=== PATIENT | female | born 1955 | race Caucasian/White ===

== ENCOUNTER → 2016-08-19 | Outpatient (CLI) | payer OTHER | LOC: FIMAGING 12:44 | PROVIDERS: ATTEND Internal Medicine | DX: Z12.31 Encounter for screening mammogram for malignant neoplasm of breast (principal) | CPT/HCPCS: G0202 ==

== ENCOUNTER → 2017-01-21 | Outpatient (CLI) | payer OTHER | LOC: FIMAGING 10:46 | PROVIDERS: ATTEND Internal Medicine | DX: M43.16 Spondylolisthesis, lumbar region (principal); M51.36 Other intervertebral disc degeneration, lumbar region; R19.09 Other intra-abdominal and pelvic swelling, mass and lump ==

== ENCOUNTER → 2017-01-27 | Outpatient (CLI) | payer OTHER | LOC: CIMAGING 08:57 | PROVIDERS: ATTEND Internal Medicine | DX: N83.291 Other ovarian cyst, right side (principal); N83.292 Other ovarian cyst, left side; R93.8 Abnormal findings on diagnostic imaging of other specified body structures | CPT/HCPCS: 76856-PO ==

== ENCOUNTER → 2017-01-30 | Outpatient (CLI) | payer OTHER | LOC: BRMIMAGING 09:11 | PROVIDERS: ATTEND Internal Medicine | DX: Z13.820 Encounter for screening for osteoporosis (principal); M85.80 Other specified disorders of bone density and structure, unspecified site ==

== ENCOUNTER → 2017-03-17 | Outpatient (CLI) | payer OTHER ==
[~2017-03-17] MED LIST: IOPAMIDOL (ISOVUE 370) 100 ML BTL IV ONE; NITROGLYCERIN 0.4 MG BTL SL ONE
== END ==
LOC: FIMAGING 07:33
PROVIDERS: ATTEND Internal Medicine Cardiovascular Disease
DX: K59.00 Constipation, unspecified (principal); S33.140A Subluxation of L4/L5 lumbar vertebra, initial encounter; M48.061 Spinal stenosis, lumbar region without neurogenic claudication; I34.1 Nonrheumatic mitral (valve) prolapse; I34.0 Nonrheumatic mitral (valve) insufficiency
CPT/HCPCS: Q9967

== ENCOUNTER → 2017-12-20 | Outpatient (CLI) | payer OTHER | LOC: FIMAGING 11:32 | PROVIDERS: ATTEND Internal Medicine | DX: Z12.31 Encounter for screening mammogram for malignant neoplasm of breast (principal) ==

== ENCOUNTER 2018-01-18 10:08 | Inpatient (IN) | payer OTHER ==
[2018-01-18] MEDS ORDERED: LIDOCAINE 1% 2 ML INJ ID PRN (12:32)
[2018-01-18] MEDS ORDERED: LR 1,000 ML IV ONE (12:32)
[2018-01-18] MEDS ORDERED: BUPIVACAINE/EPI 0.5% 30 ML SDV ONE ×2 (14:40→16:16)
[2018-01-18] MEDS ORDERED: SURGIFLO MATRIX KIT WITH THROMBIN 8 ML TP ONE (14:40)
[2018-01-18] MEDS ORDERED: BACITRACIN 50,000 UNITS/10 ML SYR IRR ONE (14:41)
[2018-01-18] MEDS ORDERED: TRANEXAMIC ACID 1,000 MG in NS 100 ML IV ONE (14:54)
[2018-01-18] MEDS ORDERED: ceFAZolin 2 GM/DEXTROSE 100 ML IV ONE (14:54)
--- NOTE | 2018-01-18 15:20 | PDANEPAE ---
ANE Past Medical History - Cardiovascular History Hx Hypertension: No Hx Arrhythmias: Yes Hx Chest Pain: No Hx Coronary Artery / Peripheral Vascular Disease: No Hx CHF / Valvular Disease: Yes Hx Palpitations: No Cardiovascular History Comment: ring in MV. 03/2017 MVR @ [facility]. frequent PVC's and PAC's as seen on holter report. Followed by Afshan Maciel at [facility]- will obtain records - Pulmonary History Hx COPD: No Hx Asthma/Reactive Airway Disease: No Hx Recent Upper Respiratory Infection: No Hx Oxygen in Use at Home: No Hx Sleep Apnea: No Sleep Apnea Screening Result - Last Documented: Negative - Neurologic History Hx Cerebrovascular Accident: No Hx Seizures: No Hx Dementia: No Neurologic History Comment: with walking she has burning to feet - Endocrine History Hx Diabetes: No Hypothyroid: No Hyperthyroid: No Obesity: no - Renal History Hx Renal Disorders: No - Liver History Hx Hepatic Disorders: No - Neurological & Psychiatric Hx Hx Neurological and Psychiatric Disorders: No - Cancer History Hx Cancer: No - Congenital Disorder History Hx Congenital Disorders: No - GI History GERD: no Hx Gastrointestinal Disorders: No - Other Health History Other Health History: wears glasses - Chronic Pain History Chronic Pain: Yes (sacral pain) - Surgical History Prior Surgeries: 03/2017 MVR at [facility]. 01/2017 total hysterectomy. tonsillectomy at 5 yo ANE Review of Systems Review of Systems: - Exercise capacity Exercise capacity: >=4 METS, limited by disability METS (RN): 4 METS ANE Patient History - Allergies Allergies/Adverse Reactions: lisinopril Allergy (Verified 12/26/17 14:32) - Home Medications Home Medications: Aspirin [Aspirin 81mg (*)] 81 mg PO DAILY 03/07/17 [Last Taken 01/11/18] Calcium Carbonate [Oyster Shell Calcium 500 mg (*)] 500 mg PO DAILY 03/07/17 [ Last Taken Unknown] Cholecalciferol Vit D3 [Vitamin D3 (*)] 2,000 units PO DAILY 03/07/17 [Last Taken 01/11/18] Magnesium Oxide [Magnesium] 500 mg PO DAILY 12/22/17 [Last Taken 01/11/18] Riboflavin [Vitamin B-2] 500 mg PO DAILY 12/22/17 [Last Taken 01/11/18] Rosuvastatin Calcium 5 mg PO DAILY 12/22/17 [Last Taken 01/15/18] - NPO status NPO Since - Liquids (Date): 01/18/18 NPO Since - Liquids (Time): 05:15 NPO Since - Solids (Date): 01/18/18 NPO Since - Solids (Time): 05:00 - Anes Hx Anes Hx: post operative nausea and vomiting - Smoking Hx Smoking Status: Never smoked Marijuana use: No - Alcohol Use Alcohol Use: Rarely - Family Anes Hx Family Anes Hx: neg - N/A Family Hx Anesthesia Complications: mother and brother tended to get very nauseous with codeine drugs ANE Labs/Vital Signs - Vital Signs Blood Pressure: 133/92 Heart Rate: 81 Respiratory Rate: 12 O2 Sat (%): 97 Height: 157.48 cm Weight: 49.895 kg ANE Physical Exam - Airway Neck exam: FROM Mallampati Score: Class 2 Mouth exam: normal dental/mouth exam - Pulmonary Pulmonary: no respiratory distress, no rales or rhonchi, clear to auscultation - Cardiovascular Cardiovascular: regular rate and rhythym, no murmur, rub, or gallop - ASA Status ASA Status: II ANE Anesthesia Plan Anesthesia Plan: general endotracheal anesthesia Total IV Anesthesia: No
--- NOTE | 2018-01-18 15:23 | PDHPUP ---
History & Physical Update H&P update statement: This history and physical update is based on an assessment of the patient which was completed after admission or registration (within 24 hours), but prior to the surgery/procedure. H&P update: H&P reviewed & patient examined, no change in patient's condition since H&P completed
[2018-01-18] MEDS ORDERED: PROPOFOL 200 MG/20 ML VIAL ONE (15:40)
[2018-01-18] MEDS ORDERED: fentaNYL 100 MCG/2 ML INJ ONE ×2 (15:40→18:21)
[2018-01-18] MEDS ORDERED: ROCURONIUM 50 MG/5 ML VIAL ONE (15:41)
[2018-01-18] MEDS ORDERED: ONDANSETRON 4 MG/2 ML VIAL ONE (15:41)
[2018-01-18] MEDS ORDERED: PHENYLEPHRINE HCL 100 MCG/ML SYR ONE (15:44)
[2018-01-18] MEDS ORDERED: LIDOCAINE 2% 2 ML INJ ONE ×2 (15:44)
[2018-01-18] MEDS ORDERED: DEXAMETHASONE 4 MG/ML VIAL ONE (15:47)
[2018-01-18] MEDS ORDERED: NALOXONE HCL 0.4 MG/ML INJ IVP PRN (16:26)
[2018-01-18] MEDS ORDERED: SUGAMMADEX SODIUM 200 MG/2 ML VIAL IVP ONE (16:26)
[2018-01-18] MEDS ORDERED: oxyCODONE IR 5 MG TAB PO PRN (16:26)
[2018-01-18] MEDS ORDERED: HYDROCODONE/APAP 5/325 TAB PO PRN (16:26)
[2018-01-18] MEDS ORDERED: ONDANSETRON 4 MG/2 ML VIAL IVP PRN ×2 (16:26→18:19)
[2018-01-18] MEDS ORDERED: PHENYLEPHRINE HCL 100 MCG/ML SYR IVP PRN (16:26)
[2018-01-18] MEDS ORDERED: HYDROmorphONE/DILAUDID 2 MG/ML INJ IVP PRN (16:26)
[2018-01-18] MEDS ORDERED: ACETAMINOPHEN 500 MG TAB PO PRN (16:26)
[2018-01-18] MEDS ORDERED: LR 500 ML IV PRN (16:26)
[2018-01-18] MEDS ORDERED: PROMETHAZINE HCL 25 MG/ML INJ IVP PRN (16:26)
[2018-01-18] MEDS ORDERED: fentaNYL 100 MCG/2 ML INJ IVP PRN (16:26)
[2018-01-18] MEDS ORDERED: ePHEDrine SULFATE 25 MG/5 ML SYR ONE (16:48)
[2018-01-18] MEDS ORDERED: VANCOMYCIN 1 GM VIAL ONE (17:40)
[2018-01-18] MEDS ORDERED: LACTULOSE 20 GM/30 ML UDCUP PO PRN (18:19)
[2018-01-18] MEDS ORDERED: ONDANSETRON DISINTEGRATING 4 MG TAB PO PRN (18:19)
[2018-01-18] MEDS ORDERED: MAGNESIUM HYDROXIDE 30 ML UDCUP PO PRN (18:19)
[2018-01-18] MEDS ORDERED: diphenhydrAMINE 25 MG CAP PO PRN (18:19)
[2018-01-18] MEDS ORDERED: BISACODYL 10 MG SUPP PR PRN (18:19)
[2018-01-18] MEDS ORDERED: HYDROmorphONE/DILAUDID 1 MG/ML INJ IVP PRN (18:19)
[2018-01-18] MEDS ORDERED: POLYETHYLENE GLYCOL 3350 17 GM PKT PO PRN (18:19)
--- NOTE | 2018-01-18 18:25 | POSTOPPROG ---
Post Op Note Date of Operation: 01/18/18 Surgeon: Carroll Sanchez Elevator Erector Helper: Noemi Hernandez PA-C Anesthesiologist: Dr. Juan Morris Anesthesia: GET(General Endotracheal) Pre-op Diagnosis: low back pain Post-op Diagnosis: low back pain, lumbar stenosis, lumbar degenerative disc Indication: low back pain Procedure: L4-5 MIS TLIF Inf/Abcess present in the surg proc area at time of surgery?: No EBL: 50-100 Complications: none
--- NOTE | 2018-01-18 18:29 | SOAPPROG ---
SOAP Progress Note Assessment/Plan: Assessment/Plan: 62y/o female s/p L4-5 TLIF - orders as written - TEDs/SCDs - PT/OT - LSO when out of bed - anticipate discharge tomorrow pending clinical course - call with any issues or concerns 01/18/18 18:25 Subjective: Minimal low back pain Objective: Vital Signs Temp Pulse Resp BP Pulse Ox 36.8 C 81 12 133/92 H 97 01/18/18 12:51 01/18/18 16:26 01/18/18 16:26 01/18/18 16:26 01/18/18 16:26 NAD, waking from anesthesia EOMi, face symmetric LE 5/5=B in quads, hamstring, dorsiflexion, plantarflexion EHL sensation grossly intact throughout incision clean, dressed ICD10 Worksheet Patient Problems: Problems Problem Status Onset Low back pain Acute - ICD10 Problem Qualifiers (1) Low back pain
--- NOTE | 2018-01-18 18:34 | POSTANESTH ---
Post Anesthetic Evaluation Cardiovascular Status: Normal, Stable Respiratory Status: Normal, Stable Level of Consciousness/Mental Status: Can Participate in Eval Pain Control: Adequate, Prn Tx Ordered Nausea/Vomiting Control: Adequate, Prn Tx Ordered Complications Possibly Related to Anesthesia: None Noted
[2018-01-18] MEDS ORDERED: DIAZEPAM 5 MG/ML 1 ML SYR ONE (18:47)
[2018-01-18] MEDS: DIAZEPAM 5 MG/ML 1 ML SYR IVP PRN ×2 (18:50→19:05)
[2018-01-18] MEDS ORDERED: oxyCODONE IR 5 MG TAB ONE (20:11)
[2018-01-18] MEDS: ACETAMINOPHEN 500 MG TAB PO SCH (22:48)
[2018-01-18] MEDS: SENNOSIDES/DOCUSATE SODIUM TAB PO SCH (22:49)
[2018-01-19] MEDS: oxyCODONE IR 5 MG TAB PO PRN ×5 (00:07→15:38)
[2018-01-19] MEDS: ceFAZolin 2 GM/DEXTROSE 100 ML IV SCH ×2 (00:07→08:51)
[2018-01-19] MEDS: ACETAMINOPHEN 500 MG TAB PO SCH ×3 (05:52→23:44)
--- NOTE | 2018-01-19 07:17 | PDMN ---
Medical Necessity Medical necessity: Pt meets inpt criteria per MD order and [facility] S-820, Lumbar Fusion, Medicare inpt only list. Pt w/ lumbar stenosis and lumbar degen disc disease underwent L4-5 MIS TLIF.
[2018-01-19] MEDS: SENNOSIDES/DOCUSATE SODIUM TAB PO SCH ×2 (08:55→23:44)
[2018-01-19] MEDS: ROSUVASTATIN CALCIUM 10 MG TAB PO SCH (08:55)
[2018-01-19] MEDS: CYCLOBENZAPRINE 10 MG TAB PO PRN ×2 (10:36→18:38)
--- NOTE | 2018-01-19 13:04 | GPROG ---
I saw and evaluated this patient during this morning's rounds. Overall, she is doing remarkably well . She is actually sitting at the bedside. She reports that she has relief of the lumbar pseudo-rody dicatory type pain that she was having before the operation. She reports no lower extremity symptoms at all. I have discussed the plan of care with the patient's nurse. Her dressing is clean, dry, an d intact. At this point, I will progress with patient with some physical therapy, but I think she is more than safe to go home today as long as they are in agreement. We will get some x-rays to make s ure all the instrumentation is looking fine. /[id number]/MODL
--- NOTE | 2018-01-19 13:24 | GDS ---
The patient underwent an uncomplicated left-sided L4-5 MIS TLIF on 01/18 without complication. She d id quite well following operation. She noticed immediate pain relief in her lower back following dimas melida. She progressed well with physical therapy and was subsequently cleared for discharge home on o ral pain medicine. Her vitals were stable, and her pain was well controlled on an oral regimen throu ghout the hospital stay. The patient is to see me in my office 2 weeks following the operation for an incision check. She has been prescribed oral medications. She knows she can resume all medications, except for blood thinne rs and NSAIDs 1 week after the operation. The patient has a 32-page packet describing all postoperat jena instructions and should refer to that. If she has any remaining questions, she is more than welc ome to contact my cell phone, which she has the number for. /[id number]/MODL
--- NOTE | 2018-01-19 13:48 | ASMTCMCOM ---
CM Note CM Note Notes: Pt is a 62 y/o female admitted for spinal stenosis of lumbar region. Pt had the surgery w/ Dr. Sanchez. CM met w/ pt for dispo planning. Pt is interested in having HC, PT services. OT has cleared pt to d/c home without any needs. Referral sent to [facility]. [facility] is able to accept pt and start on Monday. Pt was ok w/ this. CM confirmed pts address and phone number. CM called Dr. Sanchez to put in Transfer of Care. CM provided June, RN w/ phone number to give report. Pts son will be bringing pt home. CM available for changes. [facility] Date Signed: 01/19/2018 01:47 PM Electronically Signed By:UZMA Anderson
--- NOTE | 2018-01-19 13:49 | ASDISCHSUM ---
Discharge Information Plan Status:Home with Home Health Medically Cleared to Leave:01/19/2018 Discharge Date:01/19/2018 CM D/C Disposition: ADT D/C Disposition: Projected Discharge Date:01/19/2018 11:00 AM Transportation at D/C: Discharge Delay Reason: Follow-Up Date:01/19/2018 11:00 AM Discharge Slot: Final Diagnosis: Placement Information Referral Type:*Home Health Care Services Referral ID:[id number] Provider Name:[facility] Address 1:[address] Address 2: City:[place]: State:[place] Patient Contact Information Contact Name:ELIANA Relationship:Other Address: City: [facility] Phone: [facility]/Zip Code: Email: Financial Information Financial Class:[employer] Primary Plan Desc:PATRICIA GARRETT Primary Plan Number:[id number] Secondary Plan Desc: Secondary Plan Number: Assessment Information LACE LACE Length of stay for Answers: 1 day current admission Acuity / Level of Answers: Yes Care: Did the patient have an inpatient admission? Comorbidities - select Answers: Congestive heart failure all that apply Opioid dependence / Chronic pain # of Emergency department Answers: 0 visits in the last 6 months Score: 10 Date Signed: 01/19/2018 01:48 PM Electronically Signed By:UZMA Anderson [facility] Progress Note CM Eliceo CM Note Notes: Pt is a 62 y/o female admitted for spinal stenosis of lumbar region. Pt had the surgery w/ Dr. Sanchez. CM met w/ pt for dispo planning. Pt is interested in having HC, PT services. OT has cleared pt to d/c home without any needs. Referral sent to [facility]. [facility] is able to accept pt and start on Monday. Pt was ok w/ this. CM confirmed pts address and phone number. CM called Dr. Sanchez to put in Transfer of Care. CM provided June, RN w/ phone number to give report. Pts son will be bringing pt home. CM available for changes. Plan: [facility]; RN Date Signed: 01/19/2018 01:47 PM Electronically Signed By:UZMA Anderson Intervention Information
--- NOTE | 2018-01-19 14:12 | ASMTCMCOM ---
CM Note CM Note Notes: CM spoke to Dr. Sanchez and he does not want pt to have HC at this time. Pt will follow up w/ him in 2 weeks. CM communicated this w/ pt, [facility] and [facility]. No needs at this time. Pt will d/c independent. Date Signed: 01/19/2018 02:11 PM Electronically Signed By:UZMA Anderson
[2018-01-20] MEDS: oxyCODONE IR 5 MG TAB PO PRN ×2 (03:06→12:29)
[2018-01-20] MEDS: ACETAMINOPHEN 500 MG TAB PO SCH (07:17)
[2018-01-20] MEDS: SENNOSIDES/DOCUSATE SODIUM TAB PO SCH (07:18)
[2018-01-20] MEDS: ROSUVASTATIN CALCIUM 10 MG TAB PO SCH (09:49)
--- NOTE | 2018-01-20 10:56 | SUROPNOTE ---
[facility] Operative Report - Surgery Patient: Sherri Duarte Date: 01/18/18 Pre-operative Diagnoses: L4/5 Degenerative disc disease and spondylosis L4/5 Degenerative spondylolisthesis Bilateral L4 pars insufficiency fractures Lumbar spinal stenosis Post-operative Diagnosis: Same Procedures: L4/5 Minimally Invasive Posterior Lumbar Decompression and Fusion with Instrumentation Left L4/5 Transforaminal Lumbar Interbody Fusion (TLIF) Structural use of morselized local autograft bone Structural use of allograft Use of intra-operative fluoroscopy Use of intra-operative neuromonitoring, including EMG and SSEP modalities Use of a surgical microscope Surgeon: Carroll Sanchez MD Assist: Noemi Hernandez PA-C Anesthesia: General endotracheal anesthesia Findings: As expected spondylolisthesis, spinal stenosis, facet hypertrophy Estimated Blood Loss: 100mL Drains: Hemovac sewn to skin Specimens: None Complications: None Condition: Transferred to PACU in stable condition Implants: NuVasive Screws: 40mm x 6.5mm (L4), 45mm x 6.5mm (L5 Rods: 35mm x2 TLIF cage: 7mm, TLX NuVasive cage, opened to full lordosis Allograft: 3mL allograft used structurally in the disc space and interbody cage Autograft: local bone from decompression used structurally in the disc space and interbody cage Indications: This patient was seen in my office and diagnosed with degenerative spondylolisthesis and spinal stenosis. I have explained all options of treatment for the patient, and the patient has elected to proceed with operative management. I have explained all risks, benefits, and alternatives of the proposed procedure. The risks that we have discussed include , blindness, nerve damage, infection, dural tear, failure of surgery to alleviate pre-operative symptoms, nonunion, and possible need for further operation. I explained separately the risks of allograft, including infection and disease transfer. In addition to the aforementioned procedure, I discussed with the patient that other procedures may be indicated during the course of surgery that would be considered in the patients best interest. The patient expressed understanding of this and agreed to move forward with operative management. Pre-operative: The proposed incision site was marked in the pre-operative holding area by me. The patient was then taken to the operating room in stable condition. Following smooth induction of general anesthesia, the patient was positioned prone on a Servando table in mild reverse Trendelenburg with all down surfaces well-padded. The patient was then prepped and draped in the usual sterile fashion. Pre- operative antibiotics were administered within one hour of the incision. A surgical timeout was performed, and all parties involved in the procedure were in agreement on the correct patient, location, and procedure to be performed. Level localization and spinal pause: The proposed L4/5 levels were identified using C-arm fluoroscopy and the skin was marked for the proposed incision. The pedicles were marked out. Two separate incisions, 4cm lateral to midline were made, approximately 4cm in length. Electrocautery was used to dissect the subdermal fat layer down to fascia and to coagulate bleeding vessels. The fascia was then incised longitudinally in line with the incision. Blunt finger dissection was then performed; the facets were palpated and muscle was swept away al allow for instrumentation to be passed easily down to bone. At this time, a secondary spinal pause was then performed, and the level was confirmed with all parties participating in the operation. Pedicle screw placement: All pedicle screws were placed in a percutaneous fashion. Using biplanar fluoroscopy, a Jamshidi needle was gently malleted into place at the appropriate pedicle screw starting position at the lateral border of the facet on the AP view and mid-point of the pedicle on lateral view. The needle was advanced just past the pedicle into the vertebral body. At this point, a neurostimulating probe was attached to the end of the needle and all potentials were noted to be above 10 milliamps. The central trocar was then removed, and a blunt K-wire was passed into the cannulated pedicle. The Jamshidi was then removed completely, with the K-wire anchored in the vertebral body. A tap was then used up to a size that was 1mm below the final screw size based on pre- operative templating. An appropriately-sized screw was placed at each level and confirmed fluoroscopically. On the same side as the TLIF cage, two headless shanks were placed, which would allow for facile visualization of bony landmarks and safe decompression. On the contralateral side, complete pedicle screws with associated reduction towers were placed at this time. All screws were then stimulated. Each screw was stimulated and potentials were all above 20 milliAmps. Approach and transpedicular decompression (cephalad level nerve root to be fused ): Based on pre-operative neurological symptoms, a decision was made with the patient to place a TLIF cage on the more symptomatic side. A pointed dilator was introduced onto the lateral pars of the caudal level to be fused. Serial dilators were used and the XLIF retractor system was then docked. Positioning was confirmed parallel to the disc space to be fused by lateral fluoroscopy. Using a transpedicular decompression technique and taking care to avoid breach into the previously created pedicle tract, the inferior facet of the cephalad level to be fused, and the superior facet of the caudal level to be fused were removed using a high speed leny and Kerrison rongeurs. Special care was taken to not use the high speed leny in proximity to the underlying nerve root. Using a [place] #4, the nerve was protected cephalad and Kambins triangle was identified (bordered by the nerve root cephalad and the thecal sac medially). TLIF: The disc space to be fused was identified by appearance and consistency. With a disc knife angled away from neural structures, the annulus was transected and removed using a disc punch. A disc space dilator was used to free any remaining annulus, which was removed using a disc punch and/or scalpel. All remaining nucleus pulposus and cartilage from both cephalad and caudal end plates were removed using a series of straight and angled disc preparation curettes. A blunt -tipped long 10mL syringe was then passed into the disc space and flushed to remove any additional disc fragments; this was done multiple times until no further loose fragments were produced. Trial TLIF spacers were then passed into the disc space to both dilate the space and adequately size the final implant. Local autograft bone was then combined with allograft bone; 5mL of bone was inserted into the disc space using a specialized bone insertion device, and the remaining bone was placed into the interbody cage. After this, an appropriately sized cage was selected, packed with local autograft bone, and attached to an inserted handle. The TLIF cage was then malleted into place and positioning was confirmed by visual inspection and biplanar radiographs. Any bleeding epidural vessels were coagulated using bipolar cautery. Fran and set screw placement, reduction of spondylolisthesis and bilateral pars insufficiency fractures: At this time, associated tulip heads were placed into the screws with associated reduction towers on the TLIF side. Using a percutaneous fran passer, an appropriately-sized fran was then placed into the pedicle screw heads with ample fran extending from either end. To ensure that the rods were appropriately positioned, three checks were performed: the rods were visually inspected, the insertion handle was torqued and both towers were visualized to move, and a lateral radiograph was taken to ensure an appropriate length to the rods. The set screws were then tightened in the caudal screws first. Using the reduction towers in the cephalad screws, the pedicle screws were then engaged and pulled posteriorly into the rods. This was done simultaneously on both sides to minimize stress at either level. At this point, a lateral radiograph was taken and reduction of the vertebral insufficiency fractures was noted. Of note, there were no changes in the SSEP, MEP and EMG monitoring during this maneuver. Set screws were then placed into the cephalad pedicle screws over the rods, and all set screws were tensioned using a torque-limited screwdriver. Bone graft: All bony surfaces were decorticated using a high speed leny, including all facets to be fused. All local autograft bone was cleaned of soft tissue and morselized. All remaining allograft and autograft bone was placed in the facets being fused. Closure: The surgical field was then copiously irrigated with sterile saline. Vancomycin powder was then applied to the surgical field. A small drain was placed deep to the fascia and brought out of the skin superior and laterally. The drain was then sewn to skin. #1 vicryl suture were used to repair the fascia in an interrupted fashion. Then 2-0 interrupted sutures were used to repair the dermal layer, and a separate 3-0 monofilament suture was used to repair the subcutaneous layer in a running fashion. All sutures used were absorbable. Topical adhesive was then applied to the skin and allowed to dry. A sterile island dressing was applied over the surgical incision. A surgical count was performed before initiation of closure and following the procedure, and all were correct. I was present for the entire procedure. Surgical microscope use: A surgical microscope was utilized throughout the decompressive portion of this case. This was deemed necessary for safe and accurate surgical decompression of affected nerve roots. Neuromonitoring: SSEP, MEP and EMG were used throughout the case from incision until the beginning of closure. There were no significant changes throughout the case, and SSEP signals were at their pre-surgical baseline levels before surgical closure was initiated. recruitment and outreach assistant: A retail event and sales assistant was used throughout the case, and deemed necessary for safe neural retraction, hemostasis, and suction. Recovery: The patient was extubated uneventfully in the operating room. The patient was taken to the recovery room in stable condition. Sequential compression devices for VTE prophylaxis were applied to the patients lower extremities, and were ordered to be used while the patient was non-ambulatory. Chemical VTE prophylaxis was considered to be contraindicated for this patient because of the risk of bleeding near the epidural space. Carroll Sanchez MD
--- NOTE | 2018-01-20 11:22 | ASMTDCNOTE ---
Case Management Discharge Discharge Order Complete? Answers: Yes Patient to Obtain Answers: Independently Medications Transportation Arranged Answers: Family/Friends Transport will Pick (Date 01/20/2018 12:00 AM & Time) EMTALA Complete Answers: No Notes: N/A Case Management Transport Answers: No Notes: N/A Form Complete Faxed Final Orders Answers: No Notes: N/A Agency/Facility Transfer Answers: No Notes: N/A Report Printed & Faxed to Receiving Agency Family Notified Answers: Yes Notes: Pt to notify Discharge Comments Notes: Reviewed chart regarding discharge plan of care, pt's progress. Pt is s/p an uncomplicated left-sided L4-5 TLIF. Per MD notes, pt to discharge home independently with no identified needs. Pt previously set up with [facility] (PT services). Per prior CM notes, Dr. Sanchez does not feel pt requires C at this time. Pt to follow up as directed. No IM/ALVARES forms signed, not applicable. CM available for any further issues or concerns. Discharge Plan: Home independently Date Signed: 01/20/2018 11:21 AM Electronically Signed By:Claudia Brown RN
[2018-01-20 11:53] VITALS: BP 125/75
--- NOTE | 2018-01-20 12:25 | GPROG ---
I personally saw and evaluated the patient at the bedside. Dressings are clean, dry, and intact. The patient has no unusual complaints. ASSESSMENT/PLAN: The patient can be discharged home safely today. I will see her back in 2 weeks' time. She knows all discharge instructions as we discussed them on a daily basis. /[id number]/MODL MTDD
== END 2018-01-20 12:34 | disposition home or self-care (01) | DRG 455 ==
LOC: F3N 12:20
PROVIDERS: ADMIT Orthopaedic Surgery Orthopaedic Surgery of the Spine; ATTEND Orthopaedic Surgery Orthopaedic Surgery of the Spine
DX: M43.16 Spondylolisthesis, lumbar region (principal); M51.36 Other intervertebral disc degeneration, lumbar region; M48.061 Spinal stenosis, lumbar region without neurogenic claudication
CPT/HCPCS: 97116-GP; 97161-GP; 97166-GO; 97530-GO; 97535-GO; C1713; C1762; J0690; J1100; J2370; J2405; J2704; J3010; J3360; J3370